=== PATIENT | male | born 1965 | race Caucasian/White ===

== ENCOUNTER → 2016-11-09 | Outpatient (CLI) | payer SELFPAY ==
--- NOTE | 2016-11-11 17:23 | RAD ---
EXAM DESCRIPTION: Hip,Left 2 Views CLINICAL HISTORY: 51 years Male HIP PAIN COMPARISON: None. TECHNIQUE: LEFT hip, two views FINDINGS: No acute fractures or dislocations are identified. No osseous destructive lesions. Vascular calcification in the pelvis and right thigh. IMPRESSION: No acute fracture is identified. Electronically signed by: Kesha Guillermo 11/11/2016 5:21 PM CDT
--- NOTE | 2016-11-11 17:35 | RAD ---
EXAM DESCRIPTION: Hip,Right 2 Views CLINICAL HISTORY: 51 years Male HIP PAIN COMPARISON: None. TECHNIQUE: RIGHT hip, two views FINDINGS: No acute fractures or dislocations are identified. No osseous destructive lesions. Vascular calcifications in the soft tissues. IMPRESSION: No acute fracture is identified. Electronically signed by: Kesha Guillermo 11/11/2016 5:34 PM CDT
== END | disposition home or self-care (01) ==
LOC: YCFC.O 11:33
PROVIDERS: ATTEND Nurse Practitioner Family
DX: D53.9 Nutritional anemia, unspecified (principal); I10 Essential (primary) hypertension; F41.1 Generalized anxiety disorder; G62.9 Polyneuropathy, unspecified; M62.81 Muscle weakness (generalized); Z13.29 Encounter for screening for other suspected endocrine disorder; M25.551 Pain in right hip

== ENCOUNTER → 2017-11-13 | Outpatient (CLI) | payer OTHER | LOC: YCFC.O 09:45 | PROVIDERS: ATTEND Nurse Practitioner Family | DX: I10 Essential (primary) hypertension (principal); D53.9 Nutritional anemia, unspecified; E78.2 Mixed hyperlipidemia ==

== ENCOUNTER → 2019-06-06 | Outpatient (CLI) | payer SELFPAY | LOC: RESP 12:46 | PROVIDERS: ATTEND Nurse Practitioner | DX: Z01.818 Encounter for other preprocedural examination (principal) ==